=== PATIENT | male | born 1990 | race Caucasian/White ===

== ENCOUNTER 2017-01-26 20:33 | Emergency (ER) | payer BC ==
[2017-01-26 20:46] VITALS: BP 137/79; PULSE 86; RESP 18; TEMP 97.8; O2SAT 99
--- NOTE | 2017-01-26 21:04 | ED PDOC ---
HPI: Allergic Reaction Time Seen by Provider: 01/26/17 20:55 Chief Complaint (Nursing): Allergic Reaction Chief Complaint (Provider): allergic reaction History Per: Patient History/Exam Limitations: no limitations Onset/Duration Of Symptoms: Hrs Current Symptoms Are (Timing): Better Context: Food Possible Cause: Food Associated Symptoms: Skin Rash, Swelling, Itching Home/EMS Treatment: Benadryl Additional History Per: Patient Additional Complaint(s): 26 y/o male presents for eval of possible allergic reaction. Patient states he ate English food around 16:30 and was told there was no nuts in it; but approx 2 hours later he developed itching to his throat, some facial swelling, and then broke out in hives. Patient took two Benadryl 1 hour ago with little improvement. Denies difficulty speaking/swallowing, nausea/vomiting, cough, chest pain, shortness of breath, palpitations. Past Medical History Reviewed: Historical Data, Nursing Documentation, Vital Signs Vital Signs: Last Vital Signs Temp 97.8 F 01/26/17 20:43 Pulse 86 01/26/17 20:43 Resp 18 01/26/17 20:43 BP 137/79 01/26/17 20:43 Pulse Ox 99 01/26/17 20:43 - Medical History PMH: Asthma - Surgical History Surgical History: No Surg Hx - Family History Family History: States: Unknown Family Hx - Home Medications Home Medications: Ambulatory Orders Medication Instructions Recorded Famotidine [Pepcid] 20 mg PO BID #8 tab 01/26/17 Prednisone 50 mg PO DAILY #4 tablet 01/26/17 - Allergies Allergies/Adverse Reactions: Allergies Allergy/AdvReac Type Severity Reaction Status Date / Time nut - unspecified Allergy ANAPHYLAXIS Verified 01/26/17 20:43 Review of Systems ROS Statement: Except As Marked, All Systems Reviewed And Found Negative ENT: Positive for: Throat Pain ("itching") Skin: Positive for: Rash Physical Exam - Reviewed Nursing Documentation Reviewed: Yes Vital Signs Reviewed: Yes - Physical Exam Appears: Positive for: Well, Non-toxic, No Acute Distress Head Exam: Positive for: ATRAUMATIC, NORMAL INSPECTION, NORMOCEPHALIC Skin: Positive for: Rash (generalized hives) Eye Exam: Positive for: Normal appearance ENT: Positive for: Normal ENT Inspection Cardiovascular/Chest: Positive for: Regular Rate, Rhythm Respiratory: Positive for: Normal Breath Sounds Gastrointestinal/Abdominal: Positive for: Normal Exam Back: Positive for: Normal Inspection Extremity: Positive for: Normal ROM Neurologic/Psych: Positive for: Alert, Oriented - ECG O2 Sat by Pulse Oximetry: 99 - Progress ED Course And Treament: solumedrol, pepcid IV On re-eval, patient states he is feeling better; rash/itching resolved. Patient discharged with rx Prednisone, pepcid. Advised to continue Benadryl PRN. Follow up PMD 2-3 days. Return to ED for worsening/concerning symptoms. Disposition - Clinical Impression Clinical Impression: Allergic reaction Counseled Patient/Family Regarding: Studies Performed, Diagnosis, Need For Followup, Rx Given - Disposition Disposition: Routine/Home Disposition Time: 22:05 Condition: IMPROVED Prescriptions: Famotidine [Pepcid] 20 mg PO BID #8 tab Prednisone 50 mg PO DAILY #4 tablet Instructions: Food Allergy (ED)
== END 2017-01-26 22:07 | disposition home or self-care (01) ==
LOC: H.ER 20:33
DX: T78.40XA Allergy, unspecified, initial encounter (principal)
CPT/HCPCS: 96374; 96375; 99282; J2930